=== PATIENT | female | born 1960 | race Caucasian/White ===

== ENCOUNTER → 2018-01-08 | Day surgery (SDC) | payer OTHER ==
[2018-01-01 10:59] VITALS: BMI 31.0
[~2018-01-08] VITALS: Ht 154.9 cm; Wt 74.5 kg
[~2018-01-08] MED LIST: EZET10TA63 PO; FENTANYL CITRATE INJ 50 MCG/1 ML 2 ML VIAL ONE; LIDOCAINE HCL 2% 2 ML VIAL (20MG/ML) ONE; PRLSR20 PO; PROPOFOL IV EMULSION 10 MG/ML 20 ML VIAL IV ONE; SODIUM CHLORIDE 0.9% 500ML 500 ML IV ONE
[2018-01-08 15:22] VITALS: Ht 154.9 cm; Wt 74.5 kg
--- NOTE | 2018-01-08 15:31 | Endo History and Physical ---
History & Physical Date of Service: Jan 08, 2018. Chief Complaint: GERD Referring Physician: FISH Lafleur History of Present Illness OK to resume all medications today as prescribed Reported Home Medications Medications Dose Route/Sig Max Daily Dose Days Date Category Prilosec (Omeprazole) 20 Mg Capcr 20 Mg PO QAM 01/01/18 Reported Zetia (Ezetimibe) 10 Mg Tab 10 Mg PO QAM 01/01/18 Reported Past Surgical History Hx Cardiac Surgery: No Hx Internal Defibrillator: No Hx Pacemaker: No Hx Abdominal Surgery: Yes (SPLEENECTOMY) Hx of Implantable Prosthesis: No Hx Post-Op Nausea and Vomiting: No Hx Cancer Surgery: No Hx Thoracic Surgery: No Hx Orthopedic: Yes (RT FOOT SURGERY (DEFORMITY REPAIR)) Hx Urinary Tract Surgery: No Family History IBD Social History Smoking Status: Never Smoker Hx Substance Use: No Hx Alcohol Use: Yes (RARELY) Allergies Coded Allergies: NO KNOWN DRUG ALLERGIES (Verified Allergy, Unknown, ., 01/08/18) Current Medications Reported Home Medications Medications Dose Route/Sig Max Daily Dose Days Date Category Prilosec (Omeprazole) 20 Mg Capcr 20 Mg PO QAM 01/01/18 Reported Zetia (Ezetimibe) 10 Mg Tab 10 Mg PO QAM 01/01/18 Reported Vital Signs Weight (Kilograms): 74.55 Height (Feet): 5 Height (Inches): 1 Physical Exam General Appearance: WD/WN, no apparent distress Respiratory/Chest: Auscultation: breath sounds normal Cardiovascular: Heart Auscultation: RRR Abdomen: Bowel Sounds: normal Inspection & Palpation: soft, non-distended, no tenderness, guarding & rebound Assessment and Plan Assessment: 57 yo CF who presents for EGD secondary to GERD. Plan: Proceed with EGD
--- NOTE | 2018-01-08 17:05 | Discharge Instructions ---
Endoscopy Patient Instructions Date / Procedure(s) Performed Jan 08, 2018. EGD Allergy Information Coded Allergies: NO KNOWN DRUG ALLERGIES (Verified Allergy, Unknown, ., 01/08/18) Discharge Date / Findings Jan 08, 2018. Biopsies of mid-esophagus Schatzki's ring s/p dilation Hiatal hernia Gastric antrum biopsies Medication Instructions 1) Increase Omeprazole to 20mg by mouth each morning 1/2 hour prior to breakfast and dinner. 2) OK to resume all other medications as prescribed Reported Home Medications Medications Dose Route/Sig Max Daily Dose Days Date Category Prilosec (Omeprazole) 20 Mg Capcr 20 Mg PO QAM 01/01/18 Reported Zetia (Ezetimibe) 10 Mg Tab 10 Mg PO QAM 01/01/18 Reported Provider Instructions Activity Restrictions - No exercising or heavy lifting for 24 hours. - Do not drink alcohol the day of the procedure. - Do not drive a car or operate machinery until the day after the procedure. - Do not make any important decisions or sign important papers in 24 hours after the procedure. Following Day: - Return to full activity which may include returning to work/school. Diet Start your diet with liquids and light foods (jello, soup, juice, toast). Then eat your usual diet if not nauseated. Treatment For Common After Affects For mild abdominal pain, bloating, or excessive gas: - Rest - Eat lightly - Lie on right side Follow-Up Information Follow-up with DR. CAMARA as scheduled Anesthesia Information What You Should Know You have had a procedure that required some medicine to reduce anxiety and discomfort. This treatment is called moderate sedation. After receiving the treatment, you may be sleepy, but you will be able to breathe on your own. The effects of the treatment may last for several hours. Follow these instructions along with Activity/Diet recommendations noted above: * Do NOT do anything where dizziness or clumsiness would be dangerous. * Rest quietly at home today, then you can be up and about tomorrow. * Have a responsible person stay with you the rest of today. * You may have had an I.V. today. If so, you may take the dressing off later today. Recommendations Call your doctor if: * Trouble breathing * Continuous vomiting for more than 24 hours * Temperature above 101 degrees * Severe abdominal pain or bloating * Pain not relieved by pain medicine ordered * There is increased drainage or redness from any incision * A large amount of rectal bleeding greater than 2-3 tablespoons. (If you had a polyp/s removed or have hemorrhoids, a small amount of blood - from the rectum is to be expected.) * You have any unanswered questions or concerns. IN THE EVENT OF A SERIOUS EMERGENCY, GO TO THE NEAREST EMERGENCY ROOM Your discharge instructions were prepared by provider Benjamín Meadows. Patient Instructions Signature Page Alexandra Fuentes Patient (or Guardian) Signature/Date: I have read and understand the instructions given to me by my caregivers. Caregiver/RN/Doctor Signature/Date: The above-named patient and/or guardian has received patient instructions on this date. + Original Patient Signature Page (only) stays with chart. Please make copy for patient.
--- NOTE | 2018-01-08 17:18 | Anesthesiology Progress Note ---
Anesthesia Post Op Note Date & Time Jan 08, 2018 at 16:53 Vital Signs Pain Intensity: 0 Vital Signs Past 12 Hours Date Time Temp Pulse Resp B/P (MAP) Pulse Ox O2 Delivery O2 Flow Rate FiO2 01/08/18 15:36 36.8 93 20 142/84 (103) 96 Room Air Notes Mental Status: alert / awake / arousable, participated in evaluation Pt Amnestic to Procedure: Yes Nausea / Vomiting: adequately controlled Pain: adequately controlled Airway Patency, RR, SpO2: stable & adequate BP & HR: stable & adequate Hydration State: stable & adequate Anesthetic Complications: no major complications apparent
[2018-01-08 17:26] VITALS: BP 129/82; PULSE 93; O2SAT 93
--- NOTE | 2018-01-09 11:34 | GI REPORT ---
Patient Name: Alexandra Fuentes Procedure Date: 01/08/2018 4:14 PM Date of : 1960 Admit Type: Outpatient Age: 57 Gender: Female Attending MD: Benjamín Meadows DO Procedure: Upper GI endoscopy Providers: Benjamín Meadows DO Referring MD: Fabiola Haynes Indications: Suspected gastro-esophageal reflux disease Medicines: Monitored Anesthesia Care Complications: No immediate complications. Estimated Blood Loss: Estimated blood loss: none. Procedure: Pre-Anesthesia Assessment: - Prior to the procedure, a History and Physical was performed, and patient medications and allergies were reviewed. The patient's tolerance of previous anesthesia was also reviewed. The risks and benefits of the procedure and the sedation options and risks were discussed with the patient. All questions were answered, and informed consent was obtained. Prior Anticoagulants: The patient has taken no previous anticoagulant or antiplatelet agents. ASA Grade Assessment: II - A patient with mild systemic disease. After reviewing the risks and benefits, the patient was deemed in satisfactory condition to undergo the procedure. After obtaining informed consent, the endoscope was passed under direct vision. Throughout the procedure, the patient's blood pressure, pulse, and oxygen saturations were monitored continuously. The scope was introduced through the mouth, and advanced to the second part of duodenum. The upper GI endoscopy was accomplished without difficulty. The patient tolerated the procedure well. Findings: Biopsies were taken with a cold forceps in the middle third of the esophagus for histology. A moderate Schatzki ring (acquired) was found at the gastroesophageal junction. A TTS dilator was passed through the scope. Dilation with a 15-16.5-18 mm balloon dilator was performed to 18 mm. The dilation site was examined and showed moderate improvement in luminal narrowing. A medium-sized hiatal hernia was present. Localized mild inflammation characterized by erythema was found in the gastric antrum. Biopsies were taken with a cold forceps for histology. The examined duodenum was normal. Impression: - Moderate Schatzki ring. Dilated. - Medium-sized hiatal hernia. - Gastritis. Biopsied. - Normal examined duodenum. - Biopsies were taken with a cold forceps for histology in the middle third of the esophagus. Recommendation: - Resume previous diet. - Use Prilosec (omeprazole) 20 mg PO BID. - Await pathology results. - Return to GI office in 6 weeks. Benjamín Meadows DO 01/08/2018 5:03:08 PM This report has been signed electronically. Note Initiated On: 01/08/2018 4:14 PM Number of Addenda: 0 I attest to the content of the Intraoperative Record and orders documented therein, exceptions below {[id number]}
== END | disposition home or self-care (01) ==
LOC: C.GI 14:18
PROVIDERS: ATTEND Internal Medicine
DX: K21.9 Gastro-esophageal reflux disease without esophagitis (principal); K22.2 Esophageal obstruction; K29.70 Gastritis, unspecified, without bleeding; K44.9 Diaphragmatic hernia without obstruction or gangrene; Z90.81 Acquired absence of spleen

== ENCOUNTER 2024-02-17 11:32 | Inpatient (IN) ==
--- NOTE | 2024-02-17 11:34 | ED Triage Note ---
Date of Service February 17, 2024 Provider in Triage Author: Carlyle Smith History of Present Illness This patient was briefly evaluated while in triage. An abbreviated physical exam was performed. This patient is a 63-year-old Female who presents to the ED for evaluation of: Nauseated, lightheaded, vision off, fever. Vomiting has resolved since recent ED visit on Saturday. Not eating and drinking much. No pain. Recent testing via peripheral smear returned with likely babesia infection. PCR pending. Physical Exam GENERAL: 63 year old female. In no acute distress. SKIN: No lesions or rashes. HEART: Regular rate and rhythm. LUNGS: Clear to auscultation. ABDOMEN: Bowel sounds normoactive. No guarding or rigidity. No tenderness of palpation. NEURO: Alert and oriented. No deficits. MUSCULOSKELETAL: No deformities to inspection of the extremities. PSYCH: Patient is pleasant and answers all questions appropriately. Initial orders for labs and / or imaging were placed and patient was placed in the waiting area until a bed is available. Please see further documentation for the full ED course.
[2024-02-17] MEDS: ONDANSETRON INJ 2 MG/ML 2 ML VIAL IV STA (11:57)
[2024-02-17] MEDS: SODIUM CHLORIDE 0.9% 1,000 ML IV SCH ×3 (12:00→15:34)
[2024-02-17 12:12] LABS: Hematocrit (blood only) 41.8 % (37.0-47.0); Hemoglobin 14.5 g/dl (12.0-16.0); Mean Corpuscular Hemoglobin 29.2 pg (25.0-34.0); Mean Corpuscular Hgb Conc 34.7 g/dL (32.0-36.0); Mean Corpuscular Volume 84.1 fL (80.0-100.0); Mean Platelet Volume 12.9 fL (9.4-12.4); Platelet Count 173 K/uL (130-400); RDW Coefficient of Variation 15.3 % (11.5-14.5); RDW Standard Deviation 46.4 fL (36.4-46.3); Red Blood Count 4.97 M/uL (4.20-5.40)
--- NOTE | 2024-02-17 12:31 | XRay Report ---
XR chest 1V portable CLINICAL HISTORY: Nausea, cough TECHNIQUE: Single frontal radiograph of the chest was obtained. Comparison: None available at the time of this dictation. FINDINGS: No lines and tubes are seen. The cardiomediastinal silhouette is normal. The lungs are clear. No evid ence of pleural effusion or pneumothorax. A hiatal hernia is seen. IMPRESSION: No acute abnormalities and in particular no radiographic evidence of pneumonia. ACT 112: Negative or not required by law. Electronically signed by: Onofre Leavitt M.D. 02/17/2024 12:30 PM
[2024-02-17 12:36] LABS: Albumin Globulin Ratio 0.9 (0.9-2); Albumin Level 3.1 gm/dl (3.4-5.0); BUN Creatinine Ratio 13.6 (10-20); Bilirubin,Total 1.1 mg/dl (0.2-1.0); Calcium 8.7 mg/dl (8.6-10.3); Est GFR (Non-African American) 57.8 ml/min; Globulin 3.5 gm/dl (2.5-4.0); Magnesium 2.1 mg/dl (1.7-2.4); Potassium 3.6 mmol/L (3.5-5.1); Total Protein 6.6 gm/dl (6.0-8.3)
--- NOTE | 2024-02-17 12:39 | Emergency Department Note ---
Impression & Plan Fever, Nausea & vomiting, Babesiosis ED Provider Note ED Provider Note NAME: CORTES CASTRO AGE:63 SEX: Female : 1960 ARRIVES VIA: private vehicle INFORMANT: Patient ED PROVIDER(s): Sherrill Romero DO CHIEF COMPLAINT: Fevers, nausea and vomiting, called back due to abnormal lab HPI: This is a 63-year-old female who presents emergency department after being called to discuss abnormal lab results for tickborne illness that were initially drawn and sent last week when she presented for evaluation of fevers, nausea and vomiting. Patient states she has had persistent symptoms of this. She denies abdominal pain, diarrhea, rash or sores. Patient states she did have a tick bite approximately 3 weeks ago on her right anterior chest wall. She states she was able to remove the tick and never sought any localized rash. She denies any recent joint pains or myalgias. She denies headaches. Tickborne labs drawn last week showed a positive Babesia. PAST MEDICAL HISTORY:See Below PAST SURGICAL HISTORY:See Below FAMILY HISTORY:See Below SOCIAL HISTORY:See Below HOME MEDICATIONS:See Below ALLERGIES:See Below VITALS:See Below PHYSICAL EXAMINATION: GENERAL: alert, well appearing, well nourished, no distress, non-toxic EYE EXAM: normal conjunctiva, PERRL and EOM's grossly intact OROPHARYNX: no exudate, no erythema, lips, buccal mucosa, and tongue normal and mucous membranes are dry NECK: supple, no nuchal rigidity, no adenopathy, non-tender LUNGS: Clear to auscultation. Normal chest wall mechanics, no w/r/r HEART: no murmurs, S1 normal and S2 normal ABDOMEN: abdomen soft, non-tender, normo-active bowel sounds, no masses, no rebound or guarding. BACK: Back is symmetrical on inspection and there is no deformity SKIN: no rashes, petechiae, orbruising UPPER EXTREMITIES: upper extremities are grossly normal. FROM, nml pulses b/l. LOWER EXTREMITIES: No pitting edema. FROM, nml pulses b/l. NEURO EXAM: Normal sensorium, cranial nerves II-XII grossly intact, normal speech, no facial droop,nogross weakness of arms, no gross weakness of legs. Gross sensation intact. No ataxia. Vital Signs: reviewed and remarkable Differential Diagnosis: Bacteremia, sepsis, ABEL, electrolyte abnormalities, dehydration, pneumonia, bowel obstruction, GI bleed, as well as others were considered MEDICAL DECISION MAKING: This is a 63-year-old female who presents emergency department after being called to return due to persistent nausea, vomiting, and fevers and recent positive labs drawn several days ago in the emergency department that revealed positive Babesia. No other recent travel to suggest occult malaria. Patient was afebrile and hemodynamically stable here. Labs drawn and sent, IV established, EKG and chest ray performed bedside interpreted by me and patient monitor on telemetry. She was started on IV fluids, given IV Zofran, and recent results reviewed with ED pharmacist due to concern for positive Babesia in the setting of an immunocompromised patient status postsplenectomy as a child. After review of CDC guidelines, based on her age and the splenectomy status, this would make patient a more severe case of babesiosis. Guidelines recommended IV antibiotics and admission and ID consult. Patient started on IV azithromycin and atovaquone. Case discussed with hospitalist team for additional evaluation and management. Patient updated on results and plan, she verbalized understanding and was in agreement. Consultation(s): 1309: Discussed with eulalia Hart hospitalist team, for additional evaluation. ER Treatment Provided: See below Diagnostics Interpreted By Me: -ECG: Normal sinus at 81, normal axis, normal intervals, nonspecific ST/T wave changes, low voltage -Cardiac Monitoring: An order was placed for continuous cardiac monitoring. The monitor shows a rate of 80 with normal sinus rhythm. -Laboratory studies: As stated above and show below. -Imaging studies: X-ray Chest: A single view study of the chest was reviewed and was negative for cardiomegaly, focal infiltrate, effusion, pulmonary edema, or wide mediastinum. Triage Nursing Note Reviewed Prior/Outside Records Reviewed Past Med/Surg History Problem List (Updated 02/17/24 @ 14:13 by STEPHANE Bentley) Babesiosis (Acute) H/O: depression H/O hyperlipidemia Medical History (Updated 02/17/24 @ 14:13 by STEPHANE Bentley) Arthritis Anxiety GERD (gastroesophageal reflux disease) Surgical History S/P splenectomy S/P foot surgery Family History Brother Alcohol abuse Drug abuse Colorectal cancer Sister Bone cancer Mother Hypertension Grandmother Breast cancer Father Myocardial infarction Denies family history of Ovarian cancer Prostate cancer Social History Smoking Status: Never smoker Second Hand Exposure: No; Do You Dip or Chew Tobacco: No; Hx Alcohol Use: No Hx Substance Use: No Preferred Language: Taiwanese Communication Ability: Effective [employer] Lender Required: No Beliefs That Will Affect Care: None marital status: Current Living Situation: Alone current occupational status: employed Other Information That Helps Us Care for You: No Feels Safe at Home: Yes Dental Care, Regularly: Yes Physical Activity Frequency: Does not Exercise Seatbelt Use: always Sunscreen Use: No Assistive Devices: None Allergies Allergies Allergy/AdvReac Type Severity Reaction Status Date / Time No Known Drug Allergies Allergy Unknown . Verified 02/17/24 13:17 Home Meds Home Medications Medication Instructions Recorded Confirmed simvastatin 40 mg tablet 40 mg PO HS 02/17/24 02/17/24 Previous Rx's Medication Instructions Recorded omeprazole 20 mg tablet,delayed 20 mg PO BID #30 tabs 07/08/19 release Results & Data (ED) Vital Signs Vital Signs - 24 hr 02/17/24 11:33 02/17/24 11:33 02/17/24 11:50 Temperature 36.5 C Temperature Source Temporal Artery Scan Pulse Rate 88 82 Pulse Rate [Apical] 78 Pulse Rhythm Regular Respiratory Rate 20 16 18 Respiratory Effort / Characteristics Non-Labored Respiratory Depth Normal Blood Pressure 112/66 Blood Pressure [Left Arm] 102/80 Blood Pressure Mean 81 Blood Pressure Mean [Left Arm] 87 Blood Pressure Position Sitting Pulse Oximetry 93 94 94 Oxygen Delivery Method Room Air Room Air Room Air Sepsis Recent Fever Within 48 Hours Yes Sepsis New/Unexplained Change in Mental Status No Sepsis Action Taken by Nursing No Action Required Laboratory Data 02/18/24 07:14 02/18/24 07:14 Lab Results 02/17/24 02/17/24 Range/Units 11:54 13:00 WBC 8.70 (4.8-10.8) K/ul RBC 4.97 (4.20-5.40) M/uL Hgb 14.5 (12.0-16.0) g/dl Hct 41.8 (37.0-47.0) % MCV 84.1 (80.0-100.0) fL MCH 29.2 (25.0-34.0) pg MCHC 34.7 (32.0-36.0) g/dL RDW Std Deviation 46.4 H (36.4-46.3) fL RDW Coeff of Saritha 15.3 H (11.5-14.5) % Plt Count 173 (130-400) K/uL MPV 12.9 H (9.4-12.4) fL Immature Gran % (Auto) 0.5 % Neut % (Auto) 47.0 % Lymph % (Auto) 33.8 % Titus % (Auto) 17.9 % Eos % (Auto) 0.2 % Baso % (Auto) 0.6 % Neut # (Auto) 4.09 (1.40-6.50) K/uL Lymph # (Auto) 2.94 (1.20-3.40) K/uL Titus # (Auto) 1.56 H (0.11-0.59) K/uL Eos # (Auto) 0.02 (0.00-0.50) K/uL Baso # (Auto) 0.05 (0.00-0.20) K/uL Immature Gran # (Auto) 0.04 (0.01-0.20) K/uL Peripher Smr Path Cons Cancelled Sodium 131 L (136-145) mmol/L Potassium 3.6 (3.5-5.1) mmol/L Chloride 99 (98-107) mmol/L Carbon Dioxide 25 (21-32) mmol/L Anion Gap 7 (3-11) BUN 14 (6-23) mg/dl Creatinine 1.03 (0.6-1.2) mg/dl Est Cr Clr Drug Dosing 50.0 ml/min Est GFR ( Amer) 67.0 ml/min Est GFR (Non-Af Amer) 57.8 ml/min BUN/Creatinine Ratio 13.6 (10-20) Glucose 102 H (70-99(Fasting)) mg/dl Lactate 1.2 (0.4-2.0) mmol/L Calcium 8.7 (8.6-10.3) mg/dl Magnesium 2.1 (1.7-2.4) mg/dl Total Bilirubin 1.1 H (0.2-1.0) mg/dl AST 28 (13-39) U/L ALT 30 (7-52) U/L Alkaline Phosphatase 72 (34-104) U/L Troponin I High Sens 3.9 (0-14) pg/ml Total Protein 6.6 (6.0-8.3) gm/dl Albumin 3.1 L (3.4-5.0) gm/dl Globulin 3.5 (2.5-4.0) gm/dl Albumin/Globulin Ratio 0.9 (0.9-2) Lipase 56 (11-82) U/L Procalcitonin 1.55 H (0-0.5) ng/ml Babesia Smear See Comment A Lyme Disease Screen Negative (Negative) Administered Medications Acetaminophen (Acetaminophen 325 Mg Tab) 650 mg PO Q4H PRN PRN Reason: pain/fever Stop: 03/18/24 14:20 Last Admin: 02/19/24 00:15 Dose: 650 mg Documented By: TKSiobhan Admin: 02/18/24 08:09 Dose: 650 mg Documented By: Admin: 02/17/24 20:23 Dose: 325 mg Documented By: ROMULO Atovaquone (Atovaquone 750 Mg/5 Ml Udc) 750 mg PO Q12H KIRK Stop: 03/18/24 20:59 Last Admin: 02/18/24 20:31 Dose: 750 mg Documented By: TKSiobhan Admin: 02/18/24 08:11 Dose: 750 mg Documented By: Admin: 02/17/24 20:23 Dose: 750 mg Documented By: CRH Enoxaparin Sodium (Enoxaparin Inj 40 Mg/0.4 Ml Syr) 40 mg SQ Q24H KIRK Stop: 03/18/24 14:29 Last Admin: 02/18/24 14:58 Dose: Not Given Documented By: Admin: 02/17/24 17:19 Dose: 40 mg Documented By: CMV Azithromycin 500 mg/ Dextrose 255 mls @ 125 mls/hr IV Q24H KIRK Stop: 02/25/24 13:29 Last Infusion: 02/18/24 15:28 Dose: Infused Documented By: Admin: 02/18/24 13:23 Dose: 125 mls/hr Documented By: CS Pantoprazole Sodium (Pantoprazole 40 Mg Tab) 40 mg PO BID KIRK Stop: 03/18/24 20:59 Last Admin: 02/18/24 20:31 Dose: 40 mg Documented By: TKSiobhan Admin: 02/18/24 08:11 Dose: 40 mg Documented By: Admin: 02/17/24 20:23 Dose: 40 mg Documented By: CRH Simvastatin (Simvastatin 40 Mg Tab) 40 mg PO HS KIRK Stop: 03/18/24 20:59 Last Admin: 02/18/24 20:31 Dose: 40 mg Documented By: Admin: 02/17/24 20:31 Dose: Not Given Documented By: CRH Discontinued Medications Atovaquone (Atovaquone 750 Mg/5 Ml Udc) 750 mg PO NOW STA Stop: 02/17/24 12:41 Last Admin: 02/17/24 13:19 Dose: 750 mg Documented By: SIMON Sodium Chloride (Nss) 1,000 mls @ 999 mls/hr IV .Q1H1M KIRK Stop: 02/17/24 12:45 Last Infusion: 02/17/24 13:23 Dose: Infused Documented By: Admin: 02/17/24 12:00 Dose: 999 mls/hr Documented By: PAOLA Azithromycin 500 mg/ Dextrose 255 mls @ 127.5 mls/hr IV NOW STA Stop: 02/17/24 14:39 Last Infusion: 02/17/24 15:30 Dose: Infused Documented By: Admin: 02/17/24 13:19 Dose: 127.5 mls/hr Documented By: SIMON Sodium Chloride (Nss) 1,000 mls @ 125 mls/hr IV .Q8H KIRK Stop: 03/18/24 12:59 Last Infusion: 02/17/24 15:12 Dose: Infused Documented By: Infusion: 02/17/24 14:23 Dose: 0 mls/hr Documented By: Admin: 02/17/24 13:19 Dose: 125 mls/hr Documented By: JKB Sodium Chloride (Nss) 1,000 mls @ 100 mls/hr IV .Q10H KIRK Stop: 02/18/24 00:20 Last Infusion: 02/18/24 02:07 Dose: Infused Documented By: Admin: 02/17/24 15:34 Dose: 100 mls/hr Documented By: CMV Sodium Chloride (Nss) 1,000 mls @ 80 mls/hr IV .[id number] ONE Stop: 02/19/24 00:29 Last Infusion: 02/19/24 01:20 Dose: Infused Documented By: Admin: 02/18/24 12:50 Dose: 80 mls/hr Documented By: ANGÉLICA Ondansetron HCl (Ondansetron Inj 2 Mg/Ml 2 Ml Vial) 4 mg IV NOW STA Stop: 02/17/24 11:39 Last Admin: 02/17/24 11:57 Dose: 4 mg Documented By: PAOLA Ondansetron HCl (Ondansetron 4 Mg Od Tab) 4 mg PO ONE ONE Stop: 02/18/24 15:05 Last Admin: 02/18/24 15:14 Dose: 4 mg Documented By: [facility] Imaging Data Radiologist's Impression: Chest X-Ray 02/17/24 11:37 XR chest 1V portable CLINICAL HISTORY: Nausea, cough TECHNIQUE: Single frontal radiograph of the chest was obtained. Comparison: None available at the time of this dictation. FINDINGS: No lines and tubes are seen. The cardiomediastinal silhouette is normal. The lungs are clear. No evidence of pleural effusion or pneumothorax. A hiatal hernia is seen. IMPRESSION: No acute abnormalities and in particular no radiographic evidence of pneumonia. ACT 112: Negative or not required by law. Electronically signed by: Onofre Leavitt M.D. 02/17/2024 12:30 PM Discharge Plan Visit Data Chief Complaint: Illness Stated Complaint: ABNORMAL TEST RESULTS ED Provider: Sherrill Romero Discharge Problem: Fever, Nausea & vomiting, Babesiosis Patient Disposition: Admitted As Inpatient Discharge Instructions Interventions: ED Discharge Assessment Last Done: 02/17/24 14:20
[2024-02-17 12:42] LABS: Troponin I High Sensitivity 3.9 pg/ml (0-14)
[2024-02-17 13:05] LABS: Basophils # (auto) 0.05 K/uL (0.00-0.20); Basophils % (auto) 0.6 %; Eosinophils # (auto) 0.02 K/uL (0.00-0.50); Eosinophils % (auto) 0.2 %; Immature Granulocytes # (auto) 0.04 K/uL (0.01-0.20); Immature Granulocytes % (auto) 0.5 %; Lymphocytes # (auto) 2.94 K/uL (1.20-3.40); Lymphocytes % (auto) 33.8 %; Monocytes # (auto) 1.56 K/uL (0.11-0.59); Monocytes % (auto) 17.9 %; Neutrophils # (auto) 4.09 K/uL (1.40-6.50)
[2024-02-17] MEDS: ATOVAQUONE 750 MG/5 ML UDC PO STA (13:19)
[2024-02-17] MEDS: AZITHROMYCIN 500 MG in DEXTROSE 5% 250 ML IV STA (13:19)
--- NOTE | 2024-02-17 14:18 | History & Physical Report ---
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 Patient presenting from home for evaluation of ongoing fever and call back from the ED after smear from 02/13 visit was positive for Babesia Patient reports tick bite ~ 3 weeks ago on her chest which she was able to remove the tick, denies any rash In the ED, afebrile, LFTs and platelets WNL Ordered parasite smear to for parasitemia percentage to help quantify severity of illness s/p IV azithromycin and atovaquone in the ED, will continue with both given hx of splenectomy ID consult Babesia PCR pending; will also check Lyme, Anaplasma, and Ehrilchia (2) S/P splenectomy: Plan: 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 Arminda Linares spent a total of 75 minutes coordinating, documenting, and providing care for this patient excluding time spent in the performance of separately billed services. This included personally reviewing all current laboratories and imaging studies, medication reconciliation, outpatient chart review, and discussion with specialists. Admission and Anticipated Discharge Date Admission Date: February 17, 2024 History of Present Illness Chief Complaint: Fever Primary Care Provider: Ayala Price MD 63-year-old female with PMH HLD, GERD, history of splenectomy at age 2 secondary to trauma, and other problem listed below who presents to the ED for evaluation of fever. Patient reports she had a tick bite on her chest about 3 weeks ago. States she was able to remove the entire tick. Denies any following rash. About 1 week ago, patient reports she started to develop fevers. She also had 3 days of nausea and vomiting. Patient was seen in the ED on 02/13 and was subsequently discharged home. She was called back today after her Babesia test returned positive. Given history of splenectomy and patient continues to run a fever, she was referred back to the ED for further evaluation. Patient reports running a fever this morning of 102 with chills. She has been taking 2 motrin/day without much relief of her symptoms. She reports the nausea and vomiting resolved. No chest pain or shortness of breath. Denies lightheadedness, dizziness, diaphoresis, and syncopal events. Denies urinary symptoms. In the ED, patient is afebrile, labs essentially unremarkable. Patient was given azithromycin, atovaquone, and IVF. Allergies Allergy/AdvReac Type Severity Reaction Status Date / Time No Known Drug Allergies Allergy Unknown . Verified 02/17/24 13:17 Home Medications Medication Instructions Recorded Confirmed Type omeprazole 20 mg tablet,delayed 20 mg PO BID #30 tabs 07/08/19 02/17/24 Rx release simvastatin 40 mg tablet 40 mg PO HS 02/17/24 02/17/24 History Past Med/Surg History Problem List (Updated 02/17/24 @ 14:13 by STEPHANE Bentley) Babesiosis (Acute) H/O: depression H/O hyperlipidemia Medical History (Updated 02/17/24 @ 14:13 by STEPHANE Bentley) Arthritis Anxiety GERD (gastroesophageal reflux disease) Surgical History S/P splenectomy S/P foot surgery Family History Brother Alcohol abuse Drug abuse Colorectal cancer Sister Bone cancer Mother Hypertension Grandmother Breast cancer Father Myocardial infarction Denies family history of Ovarian cancer Prostate cancer Social History Smoking Status: Never smoker Second Hand Exposure: No; Do You Dip or Chew Tobacco: No; Hx Alcohol Use: No Hx Substance Use: No Preferred Language: Polish [employer] Required: No Beliefs That Will Affect Care: None marital status: Current Living Situation: Alone current occupational status: employed Other Information That Helps Us Care for You: No Feels Safe at Home: Yes Dental Care, Regularly: Yes Physical Activity Frequency: Does not Exercise Seatbelt Use: always Sunscreen Use: No Assistive Devices: None Physical Exam Constitutional: WD/WN, vitals as above no acute distress Eyes: PERRL, conjunctivae normal, anicteric sclerae ENMT: external ear and nose normal, oropharynx normal Respiratory: normal respiratory effort, lungs clear to auscultation Cardiovascular: Rate/Rhythm: regular rate and regular rhythm Vessels: normal peripheral pulses Extremities: no edema Gastrointestinal (Abdomen): normal bowel sounds, soft, nontender, no hepatosplenomegaly Musculoskeletal: no cyanosis or clubbing, extremities motor strength 5/5 Skin: no rashes, warm and dry Neurologic: PERRL, EOMI, accommodation nl, no face palsy, no dysarthria Psychiatric: A+Ox3, euthymic affect Results & Data Results & Data Vital Signs (Past 12 Hours) Vital Signs Temp Pulse Pulse Resp BP BP Pulse Ox 02/17/24 13:26 80 16 105/77 97 02/17/24 13:00 84 16 99/75 L 97 02/17/24 11:50 82 18 94 02/17/24 11:33 78 16 102/80 94 02/17/24 11:33 36.5 C 88 20 112/66 93 O2 Del Method 02/17/24 13:26 Room Air 02/17/24 13:00 Room Air 02/17/24 11:50 Room Air 02/17/24 11:33 Room Air 02/17/24 11:33 Room Air Laboratory Results Short CBC 02/17/24 Range/Units 11:54 WBC 8.70 (4.8-10.8) K/ul Hgb 14.5 (12.0-16.0) g/dl Hct 41.8 (37.0-47.0) % Plt Count 173 (130-400) K/uL BMP 02/17/24 11:54 Sodium 131 L Potassium 3.6 Chloride 99 Carbon Dioxide 25 BUN 14 Creatinine 1.03 Glucose 102 H Calcium 8.7 Liver Function 02/17/24 Range/Units 11:54 Total Bilirubin 1.1 H (0.2-1.0) mg/dl AST 28 (13-39) U/L ALT 30 (7-52) U/L Alkaline Phosphatase 72 (34-104) U/L Albumin 3.1 L (3.4-5.0) gm/dl Urine 02/17/24 Range/Units 14:00 Urine Color Yellow Urine Appearance Clear (Clear) Urine pH 6.5 (4.5-7.5) Ur Specific [place] 1.003 (1.000-1.030) Urine Protein Negative (Negative) Urine Glucose (UA) Negative (Negative) Diagnostic Findings Chest X-Ray 02/17/24 11:37 XR chest 1V portable CLINICAL HISTORY: Nausea, cough TECHNIQUE: Single frontal radiograph of the chest was obtained. Comparison: None available at the time of this dictation. FINDINGS: No lines and tubes are seen. The cardiomediastinal silhouette is normal. The lungs are clear. No evidence of pleural effusion or pneumothorax. A hiatal hernia is seen. IMPRESSION: No acute abnormalities and in particular no radiographic evidence of pneumonia. ACT 112: Negative or not required by law. Electronically signed by: Onofre Leavitt M.D. 02/17/2024 12:30 PM Code Status & VTE Plan VTE Prophylaxis Plan VTE Prophylaxis will be ordered: Yes Supervising Physician Co-Signing Physician Notes Attending Addendum: care coordinated with STEPHANE Beth's notes please refer to her notes for full details, I agree with her notes patient seen and examined, records reviewed by myself as well on exam, patient , Seen sitting up, comfortable, not in distress States she is already starting to feel better no other symptoms VS noted and reviewed oriented x 3, not in distress, speaks in sentences with no effort nor accessory muscle use normal rate, regular rhythm, no murmurs clear breath sounds bilaterally non distended, soft, nontender no bipedal edema, erythema, warmth no neuro deficits all noted and reviewed including below ASSESSMENT AND PLAN> Babesiosis History of tick bite 3 weeks ago Babesia parasite smear with parasitemia percentage pending -May be needed by ID service to classify severity of illness and guide with medical therapy Lyme screen negative Anaplasmosis pending Will treat as severe babesiosis for now, IV azithromycin plus atovaquone ID consulted other diagnoses and plan of care as per STEPHANE Beth's notes En Hilliard MD
[2024-02-17 14:27] LABS: Appearance Urine Clear (Clear); Bacteria Urine Automated None Seen (None Seen); Bilirubin Urine Negative (Negative); Blood Urine Trace (Negative); Cast Urine Automated 0-2 /lpf (0-2); Color Urine Yellow; Epithelial Cell Urine Auto 0-2 /hpf (0-2); Glucose Urine UA Negative (Negative); Ketones Urine Negative (Negative); Leukocyte Esterase Urine Negative (Negative); Nitrite Urine Negative (Negative); Protein Urine Negative (Negative); RBC Urine Automated 0-2 /hpf (0-2); Specific Gravity Urine 1.003 (1.000-1.030); Urobilinogen Urine Negative (Negative); WBC Urine Automated 0-5 /hpf (0-5); pH Urine 6.5 (4.5-7.5)
[2024-02-17] MEDS: ENOXAPARIN INJ 40 MG/0.4 ML SYR SQ SCH (17:19)
[2024-02-17] MEDS: ACETAMINOPHEN 325 MG TAB PO PRN (20:23)
[2024-02-17] MEDS: SIMVASTATIN 40 MG TAB PO SCH (20:23)
[2024-02-17] MEDS: PANTOprazole 40 MG TAB PO SCH (20:23)
[2024-02-17] MEDS: ATOVAQUONE 750 MG/5 ML UDC PO SCH (20:23)
[2024-02-18 08:01] LABS: Hematocrit (blood only) 35.5 % (37.0-47.0); Hemoglobin 12.3 g/dl (12.0-16.0); Mean Corpuscular Hemoglobin 29.2 pg (25.0-34.0); Mean Corpuscular Hgb Conc 34.6 g/dL (32.0-36.0); Mean Corpuscular Volume 84.3 fL (80.0-100.0); Mean Platelet Volume 13.2 fL (9.4-12.4); Platelet Count 174 K/uL (130-400); RDW Coefficient of Variation 15.6 % (11.5-14.5); RDW Standard Deviation 47.8 fL (36.4-46.3); Red Blood Count 4.21 M/uL (4.20-5.40); White Blood Count 9.41 K/ul (4.8-10.8)
[2024-02-18 08:14] LABS: Albumin Globulin Ratio 0.8 (0.9-2); Albumin Level 2.5 gm/dl (3.4-5.0); BUN Creatinine Ratio 11.1 (10-20); Bilirubin,Total 0.8 mg/dl (0.2-1.0); Calcium 7.6 mg/dl (8.6-10.3); Creatinine Clr Calc Pharmacy 57.2 ml/min; Est GFR (African American) 78.9 ml/min; Globulin 3.1 gm/dl (2.5-4.0); Potassium 3.5 mmol/L (3.5-5.1); Total Protein 5.6 gm/dl (6.0-8.3)
[2024-02-18 08:53] LABS: Basophils # (auto) 0.05 K/uL (0.00-0.20); Basophils % (auto) 0.5 %; Eosinophils # (auto) 0.03 K/uL (0.00-0.50); Eosinophils % (auto) 0.3 %; Immature Granulocytes # (auto) 0.08 K/uL (0.01-0.20); Immature Granulocytes % (auto) 0.9 %; Lymphocytes # (auto) 3.29 K/uL (1.20-3.40); Monocytes # (auto) 1.37 K/uL (0.11-0.59); Monocytes % (auto) 14.6 %; Neutrophils # (auto) 4.59 K/uL (1.40-6.50); Neutrophils % (auto) 48.7 %; Target Cells 1+
[2024-02-18] MEDS ORDERED: PROMETHAZINE HCL 6.25 MG in SODIUM CHLORIDE 0.9% 50 ML IV PRN (11:50)
[2024-02-18] MEDS: SODIUM CHLORIDE 0.9% 1,000 ML IV ONE (12:50)
[2024-02-18] MEDS: AZITHROMYCIN 500 MG in DEXTROSE 5% 250 ML IV SCH (13:23)
--- NOTE | 2024-02-18 14:14 | Hospitalist Progress Note ---
Date of Service February 18, 2024 Assessment & Plan (1) Babesiosis: Plan: Patient presenting from home for evaluation of ongoing fever and call back from the ED after smear from 02/13 visit was positive for Babesia. Patient reports tick bite ~ 3 weeks ago on her chest which she was able to remove the tick, denies any rash. Babesiosis H/O Tick Bite H/O splenectomy Serological test positive for Babesia. 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 (3) GERD (gastroesophageal reflux disease): Plan: Continue PPI (4) H/O hyperlipidemia: Plan: Continue statin DVT Px SQ Lovenox CODE STATUS Full code Admission and Anticipated Discharge Date Admission Date: February 17, 2024 Subjective Patient is seen and examined at bedside Reports intermittent nausea Dizziness much improved Reports having poor sleep overnight Denies any chest pain, dyspnea, abdominal pain No other complaints Review of Systems Review of Systems: All systems reviewed & are unremarkable except as noted in Subjective Physical Exam Physical Exam: Physical Exam: Vitals signs as noted above General Appearance:Moderately built and nourished, no apparent distress Head: normocephalic, Atraumatic Eyes: normal inspection, EOMI Neck: supple, Trachea midline Respiratory/Chest: Normal breath sounds, CTA, No accessory muscle use Cardiovascular: S1, S2, No murmur Abdomen/GI:Soft, Non tender, Bowel sounds present Extremities/Musculoskeletal:normal inspection, no edema Neurologic/Psych:AAOX3, grossly no focal neurological deficits Skin: normal color, warm Results & Data Results & Data Vital Signs (Past 12 Hours) Vital Signs Temp Pulse Resp BP Pulse Ox O2 Del Method 02/18/24 09:18 36.8 C 02/18/24 08:09 37.5 C 88 97 Room Air 02/18/24 07:57 37.8 C H 95 H 18 101/68 91 Room Air Laboratory Results Short CBC 02/18/24 Range/Units 07:14 WBC 9.41 (4.8-10.8) K/ul Hgb 12.3 (12.0-16.0) g/dl Hct 35.5 L (37.0-47.0) % Plt Count 174 (130-400) K/uL BMP 02/18/24 07:14 Sodium 131 L Potassium 3.5 Chloride 101 Carbon Dioxide 25 BUN 10 Creatinine 0.90 Glucose 87 Calcium 7.6 L Liver Function 02/18/24 Range/Units 07:14 Total Bilirubin 0.8 (0.2-1.0) mg/dl AST 23 (13-39) U/L ALT 22 (7-52) U/L Alkaline Phosphatase 54 (34-104) U/L Albumin 2.5 L (3.4-5.0) gm/dl Urine 02/17/24 Range/Units 14:00 Urine Color Yellow Urine Appearance Clear (Clear) Urine pH 6.5 (4.5-7.5) Ur Specific [place] 1.003 (1.000-1.030) Urine Protein Negative (Negative) Urine Glucose (UA) Negative (Negative)
[2024-02-18] MEDS: ONDANSETRON 4 MG OD TAB PO ONE (15:14)
--- NOTE | 2024-02-18 15:23 | Communication Note ---
Date of Service: February 18, 2024 The internet went down at the hospital today and thus, I couldn't see Ms. Fuentes. However, I had the chance to review the chart and come up with a plan. She is to be seen officially by our team tomorrow. Ms. River is a 63-year-old woman with medical history of hyperlipidemia, GERD, and splenectomy at age of 2 years (because of trauma) who was admitted to [facility] because of concern for babesiosis. She initially presented to the emergency department on 02/13 because of fever and history of tick bite on her chest about 3 weeks prior to presentation. She was able to remove the entire tick but not sure for how long it has been on her body. Around 1 week prior to presentation, she started spiking fevers up to 103 F that was associated with nausea, vomiting, diarrhea and mild headache which prompted her to come to the emergency department. At that time, a peripheral smear was obtained and she was sent home in a stable condition on supportive treatment. After the peripheral smear for parasitemia came back positive for intracellular ring forms, she was called back to come and admitted for further management. Labs: 02/13: Babesia smear was positive for intracellular rings 02/13: Respiratory viral panel negative 02/16: Lyme screen negative 02/16: Anaplasma and Ehrlichia PCR pending 02/16: Babesia smear was positive was less than 0.1% parasitemia Impression: 1) babesiosis 2) Hx of splenectomy Recommendations: - She only has history of splenectomy but no history of being on immuno modulators/biologics. She did have elevated bilirubin of 1.5 on 02/13 but no other workup for hemolytic anemia was performed. According to the % of parasitemia (<.1%) as well as the clinical and biomarkers criteria, I would classify her as mild to moderate disease and treat for a total of 10 days with oral atovaquone 750 mg twice daily and oral azithromycin 500 mg once daily.
--- NOTE | 2024-02-19 06:05 | Electrocardiogram Report ---
Test Reason : Blood Pressure : / mmHG Vent. Rate : 081 BPM Atrial Rate : 081 BPM P-R Int : 130 ms QRS Dur : 086 ms QT Int : 394 ms P-R-T Axes : 058 002 032 degrees QTc Int : 457 ms Normal sinus rhythm Incomplete right bundle branch block Nonspecific T wave abnormality When compared with ECG of 14-FEB-2024 15:34, Nonspecific T wave abnormality has replaced inverted T waves in Inferior leads T wave inversion no longer evident in Anterior leads Confirmed by Jian Kolb ([id number]) on 02/19/2024 6:05:08 AM Referred By: En Hilliard Confirmed By:Jian Kolb
--- NOTE | 2024-02-19 08:27 | Hospitalist Progress Note ---
Date of Service February 19, 2024 Assessment & Plan (1) Babesiosis: Plan: Patient presenting from home for evaluation of ongoing fever and call back from the ED after smear from 02/13 visit was positive for Babesia. Patient reports tick bite ~ 3 weeks ago on her chest which she was able to remove the tick, denies any rash. Babesiosis H/O Tick Bite H/O splenectomy Serological test positive for Babesia. 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 (3) GERD (gastroesophageal reflux disease): Plan: Continue PPI (4) H/O hyperlipidemia: Plan: Continue statin DVT Px SQ Lovenox CODE STATUS Full code Admission and Anticipated Discharge Date Admission Date: February 17, 2024 Subjective Patient seen in follow up of babesiosis Feels tired but otherwise well BP still on lower side Says she has been ambulating without dizziness Denies any chest pain, dyspnea, abdominal pain Review of Systems Review of Systems: All systems reviewed & are unremarkable except as noted in Subjective Physical Exam Physical Exam: General Appearance:Moderately built and nourished, no apparent distress Head: NC/AT Eyes: normal inspection, EOMI Neck: supple Respiratory/Chest: Normal breath sounds, CTA, No accessory muscle use Cardiovascular: S1, S2, No murmur Abdomen/GI: Soft, Non tender, Bowel sounds present Extremities/Musculoskeletal:normal inspection, no edema Neurologic/Psych:AAOX3, grossly no focal neurological deficits Skin: normal color, warm Results & Data Results & Data Vital Signs (Past 12 Hours) Vital Signs Temp Pulse Resp BP BP Pulse Ox O2 Del Method 02/19/24 08:10 96/63 L 02/19/24 07:58 37.1 C 88 21 85/53 L 94 Room Air Laboratory Results 02/19/24 02/19/24 02/19/24 Range/Units 07:56 07:56 07:56 WBC 9.18 (4.8-10.8) K/ul RBC 4.38 (4.20-5.40) M/uL Hgb 12.8 (12.0-16.0) g/dl Hct 36.5 L (37.0-47.0) % MCV 83.3 (80.0-100.0) fL MCH 29.2 (25.0-34.0) pg MCHC 35.1 (32.0-36.0) g/dL RDW Std Deviation 47.8 H (36.4-46.3) fL RDW Coeff of Saritha 15.9 H (11.5-14.5) % Plt Count 164 (130-400) K/uL MPV 12.9 H (9.4-12.4) fL Sodium 134 L (136-145) mmol/L Potassium 3.6 TNP Chloride 104 (98-107) mmol/L Carbon Dioxide 25 (21-32) mmol/L Anion Gap 5 (3-11) BUN 9 (6-23) mg/dl Creatinine 0.91 (0.6-1.2) mg/dl Est Cr Clr Drug Dosing 56.6 ml/min Est GFR ( Amer) 77.8 ml/min Est GFR (Non-Af Amer) 67.1 ml/min BUN/Creatinine Ratio 9.9 L (10-20) Glucose 97 (70-99(Fasting)) mg/dl Calcium 8.0 L (8.6-10.3) mg/dl Total Bilirubin 0.8 (0.2-1.0) mg/dl AST 30 TNP ALT 24 (7-52) U/L Alkaline Phosphatase 53 (34-104) U/L Total Protein 6.0 (6.0-8.3) gm/dl Albumin 2.7 L (3.4-5.0) gm/dl Globulin 3.3 (2.5-4.0) gm/dl Albumin/Globulin Ratio 0.8 L (0.9-2) Procalcitonin 1.07 H (0-0.5) ng/ml Medications Administered Current Inpatient Medications Acetaminophen (Acetaminophen 325 Mg Tab) 650 mg PO Q4H PRN PRN Reason: pain/fever Stop: 03/18/24 14:20 Last Admin: 02/19/24 00:15 Dose: 650 mg Atovaquone (Atovaquone 750 Mg/5 Ml Udc) 750 mg PO Q12H KIRK Stop: 03/18/24 20:59 Last Admin: 02/19/24 08:13 Dose: 750 mg Enoxaparin Sodium (Enoxaparin Inj 40 Mg/0.4 Ml Syr) 40 mg SQ Q24H KIRK Stop: 03/18/24 14:29 Last Admin: 02/18/24 14:58 Dose: Not Given Azithromycin 500 mg/ Dextrose 255 mls @ 125 mls/hr IV Q24H KIRK Stop: 02/25/24 13:29 Last Infusion: 02/18/24 15:28 Dose: Infused Promethazine HCl 6.25 mg/ (Sodium Chloride) 50.25 mls @ 201 mls/hr IV Q6H PRN PRN Reason: Nausea And Vomiting Stop: 03/19/24 11:49 Sodium Chloride (Nss) 1,000 mls @ 125 mls/hr IV .Q8H KIRK Stop: 03/20/24 08:29 Pantoprazole Sodium (Pantoprazole 40 Mg Tab) 40 mg PO BID KIRK Stop: 03/18/24 20:59 Last Admin: 02/19/24 08:13 Dose: 40 mg Simvastatin (Simvastatin 40 Mg Tab) 40 mg PO HS KIRK Stop: 03/18/24 20:59 Last Admin: 02/18/24 20:31 Dose: 40 mg
[2024-02-19 08:41] LABS: Alanine Aminotransferase 24 U/L (7-52); Albumin Globulin Ratio 0.8 (0.9-2); Albumin Level 2.7 gm/dl (3.4-5.0); Alkaline Phosphatase 53 U/L (34-104); Anion Gap 5 (3-11); BUN Creatinine Ratio 9.9 (10-20); Bilirubin,Total 0.8 mg/dl (0.2-1.0); Blood Urea Nitrogen 9 mg/dl (6-23); Carbon Dioxide 25 mmol/L (21-32); Chloride 104 mmol/L (98-107); Creatinine Clr Calc Pharmacy 56.6 ml/min; Est GFR (African American) 77.8 ml/min; Est GFR (Non-African American) 67.1 ml/min; Globulin 3.3 gm/dl (2.5-4.0); Glucose 97 mg/dl (70-99(Fasting)); Sodium 134 mmol/L (136-145)
[2024-02-19 08:52] LABS: Hematocrit (blood only) 36.5 % (37.0-47.0); Hemoglobin 12.8 g/dl (12.0-16.0); Mean Corpuscular Hemoglobin 29.2 pg (25.0-34.0); Mean Corpuscular Hgb Conc 35.1 g/dL (32.0-36.0); Mean Corpuscular Volume 83.3 fL (80.0-100.0); Mean Platelet Volume 12.9 fL (9.4-12.4); Platelet Count 164 K/uL (130-400); RDW Coefficient of Variation 15.9 % (11.5-14.5); RDW Standard Deviation 47.8 fL (36.4-46.3); Red Blood Count 4.38 M/uL (4.20-5.40); White Blood Count 9.18 K/ul (4.8-10.8)
[2024-02-19] MEDS: SODIUM CHLORIDE 0.9% 1,000 ML IV SCH (09:10)
[2024-02-19 09:15] LABS: Potassium 3.6 mmol/L (3.5-5.1)
--- NOTE | 2024-02-19 13:27 | Infectious Disease Consult ---
"Date of Service February 19, 2024 Telehealth Information I performed this visit using a real-time telehealth connection between my location and the patients location ([facility]). After connecting through interactive tele-video, patient was identified by name and date of and/or wristband check.Patient (or authorized healthcare consumer sales representative) was informed that this was a telemedicine visit and it was being conducted confidentially over secure lines. My office door was closed and no one else was present in the room with me.Patient (or authorized healthcare consumer sales representative) provided consent to proceed with the visit, expressed an understanding of privacy and security of the telemedicine visit, and gave permission to have a hospital consumer sales representative in the room in order to assist with the visit and to conduct portions of the visit, as needed. I informed the patient (or authorized healthcare consumer sales representative) that I reviewed their record and presented the opportunity for them to ask any questions regarding the visit today. The patient agreed to participate. History of Present Illness History of Present Illness 63-year-old female with PMH HLD, GERD, history of splenectomy at age 2 secondary to trauma, who presented to the ED for evaluation of fever. Patient reports she had a tick bite on her chest about 3 weeks ago. States she was able to remove the entire tick. Denies any following rash. About 1 week ago, patient reports she started to develop fevers. She also had 3 days of nausea and vomiting. Patient was seen in the ED on 02/13 and was subsequently discharged home. She was called back today after her Babesia test returned positive. Given history of splenectomy and patient continues to run a fever, she was referred back to the ED for further evaluation. Patient reports running a fever this morning of 102 with chills. She has been taking 2 motrin/day without much relief of her symptoms. She reports the nausea and vomiting resolved. No chest pain or shortness of breath. Denies lightheadedness, dizziness, diaphoresis, and syncopal events. Denies urinary symptoms. In the ED, patient is afebrile, labs essentially unremarkable. Patient was given azithromycin, atovaquone, and IVF. Allergies Allergy/AdvReac Type Severity Reaction Status Date / Time No Known Drug Allergies Allergy Unknown . Verified 02/17/24 13:17 Home Medications Medication Instructions Recorded Confirmed Type omeprazole 20 mg tablet,delayed 20 mg PO BID #30 tabs 07/08/19 02/17/24 Rx release simvastatin 40 mg tablet 40 mg PO HS 02/17/24 02/17/24 History Patient History Medical History (Updated 02/17/24 @ 14:13 by STEPHANE Bentley) Arthritis Anxiety GERD (gastroesophageal reflux disease) Surgical History S/P splenectomy S/P foot surgery Family History Brother Alcohol abuse Drug abuse Colorectal cancer Sister Bone cancer Mother Hypertension Grandmother Breast cancer Father Myocardial infarction Denies family history of Ovarian cancer Prostate cancer Social History Smoking Status: Never smoker Second Hand Exposure: No; Do You Dip or Chew Tobacco: No; Hx Alcohol Use: No Hx Substance Use: No Preferred Language: Mongolian Communication Ability: Effective Cloth Feeder Required: No Beliefs That Will Affect Care: None marital status: Current Living Situation: Alone current occupational status: employed Other Information That Helps Us Care for You: No Feels Safe at Home: Yes Dental Care, Regularly: Yes Physical Activity Frequency: Does not Exercise Seatbelt Use: always Sunscreen Use: No Assistive Devices: None Results & Data Vital Signs (Past 12 Hours) Vital Signs Temp Pulse Resp BP BP Pulse Ox O2 Del Method 02/19/24 08:10 96/63 L 02/19/24 07:58 37.1 C 88 21 85/53 L 94 Room Air Laboratory Results Pathology consult, moderately complexity: | The peripheral blood shows a mild polycythemia with | increased anisopoikilocytosis. Frequent ring forms are seen | inside scattered red cells. There is no significant increase | in schistocytes or spherocytes. There is no evidence of | rouleaux, RBC agglutination, basophilic stippling, or | circulating nucleated red blood cells. The WBC is normal | though there is an absolute monocytosis and lymphopenia. The | granulocytes are appropriately segmented without dysplastic | features. No circulating immature myeloid precursors or | blasts are identified. The monocytes are morphologically | mature. The lymphocytes are small to moderate in size and | mature, without atypical features. The platelets are | quantitatively normal. No dysplastic or giant forms are | identified. | | The peripheral smear is remarkable for a mild polycythemia | and frequent intracellular ring form parasites. In the | absence of a history of travel, this most likely represents | babesia infection. However, the distinction between babesia | and malaria cannot be reliably made in this lab and further | testing is recommended to confirm this diagnosis. Clinical | correlation required."
[2024-02-19] MEDS: ALBUMIN 25% 25 GM/100 ML VIAL IV ONE (14:02)
[2024-02-19] MEDS: ONDANSETRON 2 MG OD TAB PO PRN (20:08)
[2024-02-19] MEDS: POTASSIUM CHLORIDE PWD 20 MEQ PACK PO STA (22:44)
[2024-02-19] MEDS: NSS + 20MEQ KCL 20 MEQ/1,000 ML BAG IV ONE (22:44)
[2024-02-20 07:13] LABS: Hematocrit (blood only) 33.7 % (37.0-47.0); Mean Corpuscular Hemoglobin 29.4 pg (25.0-34.0); Mean Corpuscular Hgb Conc 35.6 g/dL (32.0-36.0); Mean Corpuscular Volume 82.6 fL (80.0-100.0); Mean Platelet Volume 12.6 fL (9.4-12.4); Platelet Count 231 K/uL (130-400); RDW Coefficient of Variation 16.1 % (11.5-14.5); Red Blood Count 4.08 M/uL (4.20-5.40); White Blood Count 10.07 K/ul (4.8-10.8)
[2024-02-20 07:15] LABS: Albumin Globulin Ratio 0.9 (0.9-2); Albumin Level 2.8 gm/dl (3.4-5.0); BUN Creatinine Ratio 9.4 (10-20); Bilirubin,Total 0.9 mg/dl (0.2-1.0); Calcium 8.2 mg/dl (8.6-10.3); Creatinine Clr Calc Pharmacy 60.6 ml/min; Est GFR (African American) 84.5 ml/min; Est GFR (Non-African American) 72.9 ml/min; Globulin 3.1 gm/dl (2.5-4.0); Phosphorus 2.2 mg/dl (2.5-4.9); Potassium 4.6 mmol/L (3.5-5.1); Total Protein 5.9 gm/dl (6.0-8.3)
[2024-02-20] MEDS: AZITHROMYCIN 250 MG TAB PO SCH (07:54)
--- NOTE | 2024-02-20 13:26 | Infectious Disease Consult ---
"Date of Service February 20, 2024 Telehealth Information I performed this visit using a real-time telehealth connection between my location and the patients location ([facility]). After connecting through interactive tele-video, patient was identified by name and date of and/or wristband check.Patient (or authorized healthcare fraud representative) was informed that this was a telemedicine visit and it was being conducted confidentially over secure lines. My office door was closed and no one else was present in the room with me.Patient (or authorized healthcare fraud representative) provided consent to proceed with the visit, expressed an understanding of privacy and security of the telemedicine visit, and gave permission to have a hospital fraud representative in the room in order to assist with the visit and to conduct portions of the visit, as needed. I informed the patient (or authorized healthcare fraud representative) that I reviewed their record and presented the opportunity for them to ask any questions regarding the visit today. The patient agreed to participate. Assessment & Plan (1) Babesiosis: Plan: Continue azithromycin and atovaquone for 7-10 or until resolution of symptoms Plan Patient admitted with fever after a tick bite and was foud to have intracellular ring forms concerning for Babesia .Patient was started on IV azithromycin and atovaquone Patient is s/p splenectomy and so would consider immunocompromised . Once symptoms have abated and parasitemia has diminished, azithromycin can be given orally (500 mg/day), and oral atovaquone (750 mg twice daily) should be continued. For patients at low risk of relapse(asplenia), the duration of therapy is at least 7 to 10 days; in some circumstances, a longer duration of therapy may be needed. The total duration of therapy depends on individual clinical circumstances and should be tailored to resolution of symptoms and laboratory parameters (complete blood count and parasitemia <4 percent). If low- grade parasitemia persists following completion of therapy, patients should be monitored with blood smear twice weekly untilBabesiaparasites are no longer observed.Thank you for allowing us to participate in the care of this patient ID will sign off History of Present Illness History of Present Illness Ms. 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 She initially presented to the emergency department on 02/13 because of fever and history of tick bite on her chest about 3 weeks prior to presentation. She was able to remove the entire tick but not sure for how long it has been on her body. Around 1 week prior to presentation, she started spiking fevers up to 103 F that was associated with nausea, vomiting, diarrhea and mild headache which prompted her to come to the emergency department. At that time, a peripheral smear was obtained and she was sent home in a stable condition on supportive treatment. After the peripheral smear for parasitemia came back positive for intracellular ring forms, she was called back to come and admitted for further management.Patient was started on azithromycin and atovaquone Allergies Allergy/AdvReac Type Severity Reaction Status Date / Time No Known Drug Allergies Allergy Unknown . Verified 02/17/24 13:17 Home Medications Medication Instructions Recorded Confirmed Type omeprazole 20 mg tablet,delayed 20 mg PO BID #30 tabs 07/08/19 02/17/24 Rx release simvastatin 40 mg tablet 40 mg PO HS 02/17/24 02/17/24 History atovaquone 750 mg/5 mL oral 750 mg (5 mL) PO Q12H 5 days #50 mL 02/19/24 Rx suspension (Mepron) Patient History Medical History (Updated 02/17/24 @ 14:13 by STEPHANE Bentley) Arthritis Anxiety GERD (gastroesophageal reflux disease) Surgical History S/P splenectomy S/P foot surgery Family History Brother Alcohol abuse Drug abuse Colorectal cancer Sister Bone cancer Mother Hypertension Grandmother Breast cancer Father Myocardial infarction Denies family history of Ovarian cancer Prostate cancer Social History Smoking Status: Never smoker Second Hand Exposure: No; Do You Dip or Chew Tobacco: No; Hx Alcohol Use: No Hx Substance Use: No Preferred Language: Sudanese Communication Ability: Effective Tipple Mechanic Required: No Beliefs That Will Affect Care: None marital status: Current Living Situation: Alone current occupational status: employed Other Information That Helps Us Care for You: No Feels Safe at Home: Yes Dental Care, Regularly: Yes Physical Activity Frequency: Does not Exercise Seatbelt Use: always Sunscreen Use: No Assistive Devices: None Review of Systems Patient awake alert oriented no respiratory distress Physical Exam Patient in no distress normal respiratory effort PERRLA,alert oriented Results & Data Vital Signs (Past 12 Hours) Vital Signs Temp Pulse Resp BP Pulse Ox O2 Del Method O2 Flow Rate 02/20/24 09:55 36.9 C 02/20/24 07:40 Nasal Cannula 2 02/20/24 07:21 39.1 C H 102 H 16 111/69 94 Nasal Cannula 2.5 Laboratory Results Pathology consult, moderately complexity: | The peripheral blood shows a mild polycythemia with | increased anisopoikilocytosis. Frequent ring forms are seen | inside scattered red cells. There is no significant increase | in schistocytes or spherocytes. There is no evidence of | rouleaux, RBC agglutination, basophilic stippling, or | circulating nucleated red blood cells. The WBC is normal | though there is an absolute monocytosis and lymphopenia. The | granulocytes are appropriately segmented without dysplastic | features. No circulating immature myeloid precursors or | blasts are identified. The monocytes are morphologically | mature. The lymphocytes are small to moderate in size and | mature, without atypical features. The platelets are | quantitatively normal. No dysplastic or giant forms are | identified. | | The peripheral smear is remarkable for a mild polycythemia | and frequent intracellular ring form parasites. In the | absence of a history of travel, this most likely represents | babesia infection. However, the distinction between babesia | and malaria cannot be reliably made in this lab and further | testing is recommended to confirm this diagnosis. Clinical | correlation required. Diagnostic Findings FINDINGS: No lines and tubes are seen. The cardiomediastinal silhouette is normal. The lungs are clear. No evidence of pleural effusion or pneumothorax. A hiatal hernia is seen. IMPRESSION: No acute abnormalities and in particular no radiographic evidence of pneumonia."
--- NOTE | 2024-02-20 16:12 | Hospitalist Progress Note ---
Date of Service February 20, 2024 Assessment & Plan (1) Babesiosis: Plan: Patient presenting from home for evaluation of ongoing fever and call back from the ED after smear from 02/13 visit was positive for Babesia. Patient reports tick bite ~ 3 weeks ago on her chest which she was able to remove the tick, denies any rash. Babesiosis H/O Tick Bite H/O splenectomy Serological test positive for Babesia. Red blood cell inclusions noted on smear Blood cultures negative in 48 hrs Currently on atovaquone, azithromycin ID consulted and discussed with - pt febrile (02/18-02/19) - repeat peripheral smear for parasites, repeat blood cultx Blood pressure usually runs low per patient IV fluids as needed (2) S/P splenectomy: Plan: Hx of splenectomy at age 2 due to trauma (3) GERD (gastroesophageal reflux disease): Plan: Continue PPI (4) H/O hyperlipidemia: Plan: Continue statin DVT Px SQ Lovenox CODE STATUS Full code Admission and Anticipated Discharge Date Admission Date: February 17, 2024 Subjective Patient seen in follow up of babesiosis Feels tired but otherwise well BP still on lower side Febrile last night and this AM Says she has been ambulating without dizziness Denies any chest pain, dyspnea, abdominal pain Discussed with ID - repeat peripheral smear for parasites , repeat blood cultx Review of Systems Review of Systems: All systems reviewed & are unremarkable except as noted in Subjective Physical Exam Physical Exam: General Appearance:Moderately built and nourished, no apparent distress Head: NC/AT Eyes: normal inspection, EOMI Neck: supple Respiratory/Chest: Normal breath sounds, CTA, No accessory muscle use Cardiovascular: S1, S2, No murmur Abdomen/GI: Soft, Non tender, Bowel sounds present Extremities/Musculoskeletal:normal inspection, no edema Neurologic/Psych:AAOX3, grossly no focal neurological deficits Skin: normal color, warm Results & Data Results & Data Vital Signs (Past 12 Hours) Vital Signs Temp Pulse Resp BP Pulse Ox O2 Del Method O2 Flow Rate 02/20/24 13:57 36.6 C 85 16 94/65 L 95 Room Air 02/20/24 09:55 36.9 C 02/20/24 07:40 Nasal Cannula 2 02/20/24 07:21 39.1 C H 102 H 16 111/69 94 Nasal Cannula 2.5 Laboratory Results 02/20/24 02/19/2424 Range/Units 06:25 07:56 07:56 WBC 10.07 (4.8-10.8) K/ul RBC 4.08 L (4.20-5.40) M/uL Hgb 12.0 (12.0-16.0) g/dl Hct 33.7 L (37.0-47.0) % MCV 82.6 (80.0-100.0) fL MCH 29.4 (25.0-34.0) pg MCHC 35.6 (32.0-36.0) g/dL RDW Std Deviation 48.0 H (36.4-46.3) fL RDW Coeff of Saritha 16.1 H (11.5-14.5) % Plt Count 231 (130-400) K/uL MPV 12.6 H (9.4-12.4) fL Sodium 137 (136-145) mmol/L Potassium 4.6 D (3.5-5.1) mmol/L Chloride 108 H (98-107) mmol/L Carbon Dioxide 26 (21-32) mmol/L Anion Gap 3 (3-11) BUN 8 (6-23) mg/dl Creatinine 0.85 (0.6-1.2) mg/dl Est Cr Clr Drug Dosing 60.6 ml/min Est GFR ( Amer) 84.5 ml/min Est GFR (Non-Af Amer) 72.9 ml/min BUN/Creatinine Ratio 9.4 L (10-20) Glucose 93 (70-99(Fasting)) mg/dl Calcium 8.2 L (8.6-10.3) mg/dl Phosphorus 2.2 L (2.5-4.9) mg/dl Magnesium 2.0 Cancelled 2.0 (1.7-2.4) mg/dl Total Bilirubin 0.9 (0.2-1.0) mg/dl AST 40 H (13-39) U/L ALT 30 (7-52) U/L Alkaline Phosphatase 53 (34-104) U/L Total Protein 5.9 L (6.0-8.3) gm/dl Albumin 2.8 L (3.4-5.0) gm/dl Globulin 3.1 (2.5-4.0) gm/dl Albumin/Globulin Ratio 0.9 (0.9-2) Medications Administered Current Inpatient Medications Acetaminophen (Acetaminophen 325 Mg Tab) 650 mg PO Q4H PRN PRN Reason: pain/fever Stop: 03/18/24 14:20 Last Admin: 02/20/24 07:54 Dose: 650 mg Atovaquone (Atovaquone 750 Mg/5 Ml Udc) 750 mg PO Q12H KIRK Stop: 03/18/24 20:59 Last Admin: 02/20/24 07:55 Dose: 750 mg Azithromycin (Azithromycin 250 Mg Tab) 500 mg PO DAILY KIRK Stop: 02/27/24 08:59 Last Admin: 02/20/24 07:54 Dose: 500 mg Enoxaparin Sodium (Enoxaparin Inj 40 Mg/0.4 Ml Syr) 40 mg SQ Q24H KIRK Stop: 03/18/24 14:29 Last Admin: 02/20/24 13:43 Dose: Not Given Promethazine HCl 6.25 mg/ (Sodium Chloride) 50.25 mls @ 201 mls/hr IV Q6H PRN PRN Reason: Nausea And Vomiting Stop: 03/19/24 11:49 Ondansetron HCl (Ondansetron 2 Mg Od Tab) 2 mg PO Q8H PRN PRN Reason: Nausea Stop: 03/20/24 18:21 Last Admin: 02/19/24 20:08 Dose: 2 mg Pantoprazole Sodium (Pantoprazole 40 Mg Tab) 40 mg PO BID KIRK Stop: 03/18/24 20:59 Last Admin: 02/20/24 07:55 Dose: 40 mg Simvastatin (Simvastatin 40 Mg Tab) 40 mg PO HS KIRK Stop: 03/18/24 20:59 Last Admin: 02/19/24 20:10 Dose: Not Given
[2024-02-21 07:42] LABS: Hemoglobin 11.9 g/dl (12.0-16.0); Mean Corpuscular Hgb Conc 36.1 g/dL (32.0-36.0); Mean Corpuscular Volume 80.3 fL (80.0-100.0); Mean Platelet Volume 12.4 fL (9.4-12.4); Platelet Count 288 K/uL (130-400); RDW Coefficient of Variation 16.2 % (11.5-14.5); RDW Standard Deviation 45.7 fL (36.4-46.3); Red Blood Count 4.11 M/uL (4.20-5.40)
[2024-02-21 08:02] VITALS: PULSE 91; RESP 16; TEMP 99
[2024-02-21 08:02] LABS: BUN Creatinine Ratio 10.7 (10-20); Calcium 8.4 mg/dl (8.6-10.3); Creatinine Clr Calc Pharmacy 61.3 ml/min; Est GFR (African American) 85.7 ml/min; Magnesium 1.9 mg/dl (1.7-2.4); Phosphorus 2.8 mg/dl (2.5-4.9)
[2024-02-21 08:22] VITALS: O2SAT 94
--- NOTE | 2024-02-21 12:41 | Discharge Summary ---
Date of Service February 21, 2024 Admission HPI Per Admitting Provider 63-year-old female with PMH HLD, GERD, history of splenectomy at age 2 secondary to trauma, and other problem listed below who presents to the ED for evaluation of fever. Patient reports she had a tick bite on her chest about 3 weeks ago. States she was able to remove the entire tick. Denies any following rash. About 1 week ago, patient reports she started to develop fevers. She also had 3 days of nausea and vomiting. Patient was seen in the ED on 02/13 and was subsequently discharged home. She was called back today after her Babesia test returned positive. Given history of splenectomy and patient continues to run a fever, she was referred back to the ED for further evaluation. Patient reports running a fever this morning of 102 with chills. She has been taking 2 motrin/day without much relief of her symptoms. She reports the nausea and vomiting resolved. No chest pain or shortness of breath. Denies lightheadedness, dizziness, diaphoresis, and syncopal events. Denies urinary symptoms. In the ED, patient is afebrile, labs essentially unremarkable. Patient was given azithromycin, atovaquone, and IVF. Admission Exam Per Admitting Provider Constitutional: WD/WN, vitals as above no acute distress Eyes: PERRL, conjunctivae normal, anicteric sclerae ENMT: external ear and nose normal, oropharynx normal Respiratory: normal respiratory effort, lungs clear to auscultation Cardiovascular: Rate/Rhythm: regular rate and regular rhythm Vessels: normal peripheral pulses Extremities: no edema Gastrointestinal (Abdomen): normal bowel sounds, soft, nontender, no hepatosplenomegaly Musculoskeletal: no cyanosis or clubbing, extremities motor strength 5/5 Skin: no rashes, warm and dry Neurologic: PERRL, EOMI, accommodation nl, no face palsy, no dysarthria Psychiatric: A+Ox3, euthymic affect Principal Diagnosis Babesiosis Discharge Exam General Appearance:Moderately built and nourished, no apparent distress Head: NC/AT Eyes: normal inspection, EOMI Neck: supple Respiratory/Chest: Normal breath sounds, CTA, No accessory muscle use Cardiovascular: S1, S2, No murmur Abdomen/GI: Soft, Non tender, Bowel sounds present Extremities/Musculoskeletal:normal inspection, no edema Neurologic/Psych:AAOX3, grossly no focal neurological deficits Skin: normal color, warm Discharge Data Allergies Allergy/AdvReac Type Severity Reaction Status Date / Time No Known Drug Allergies Allergy Unknown . Verified 02/17/24 13:17 Consultations 02/17/24 13:09 ED Decision to Admit Stat 02/17/24 14:21 Consult Infectious Diseases Routine Hospital Course (1) Babesiosis: Patient presenting from home for evaluation of ongoing fever and call back from the ED after smear from 02/13 visit was positive for Babesia. Patient reports tick bite ~ 3 weeks ago on her chest which she was able to remove the tick, denies any rash. Babesiosis H/O Tick Bite H/O splenectomy Serological test positive for Babesia. Red blood cell inclusions noted on smear Blood cultures negative in 48 hrs Currently on atovaquone, azithromycin ID consulted and discussed with - pt febrile (02/18-02/19) - repeat peripheral smear for parasites, repeat blood cultx Blood pressure usually runs low per patient IV fluids as needed 02/21/2024 - Pt is feeling well, not requiring any IVF, not febrile and very much wants to go home. Discussed with ID - will discharge on atovaquone and azithromycin, but given anaplasma and ehrlichia are still pending, will also discharge on doxycycline. She will follow up with PCP and at that time results w ill be available and medications can be further adjusted. PCP can further discuss with ID as needed as well. 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2 due to trauma (3) GERD (gastroesophageal reflux disease): Continue PPI (4) H/O hyperlipidemia: Continue statin Total Time Total Time Spent Total Time Spent (In Minutes): 40 Discharge Plan Discharge Items Patient Disposition: Home - Self-Care Reason For Visit: BABESIA Discharge Diagnosis: Babesiosis Activity: Per Instructions section Non-emergency contact: Primary Care Provider and Specialist Call non-emergency contact if: you have any medication questions and your symptoms worsen Follow-up/Referrals: Ayala Price MD [Primary Care Provider] - 02/27/24 9:40 am (Date & Time 02/27/2024 9:40 AM Provider Rafita Frederick MD Department Family Medicine [facility] ) Diet: Regular Addtl Attending Provider Instructions: Follow up with your primary care doctor within 1 week. At that time results of your blood work will be available for review and your medications may need further adjusted. For now, take azithromycin, atovaquone and doxycycline as prescribed. Make sure to stay well hydrated. Pending Studies at Discharge: Yes Studies:: blood cultx, blood smear results Stand-Alone Forms: My [facility], Smoking Cessation Medications and DC Order Prescriptions: New atovaquone [Mepron] 750 mg/5 mL Suspension 750 mg PO Q12H 5 Days Qty: 50 0RF doxycycline hyclate 100 mg tablet 100 mg PO BID 10 Days Qty: 20 0RF azithromycin 500 mg tablet 500 mg PO DAILY Qty: 5 0RF ondansetron 4 mg Tablet,Disintegrating 2 mg PO Q8H PRN (Reason: nausea and vomiting) Qty: 5 0RF Continued omeprazole 20 mg tablet,delayed release (DR/EC) 20 mg PO BID Qty: 30 5RF simvastatin 40 mg tablet 40 mg PO HS Discharge Orders: Discharge Order (Routine); Ordered 02/21/24 Ordered By: Floyd Izaguirre Admission Data Admit Date/Time: 02/17/24 13:11 Attending Provider: Floyd Izaguirre Admit Provider: En Hilliard Primary Care Provider: Ayala Priec Other Providers: En Hilliard; Kt Waters; Brenna Gallegos; Eyal Amin I.; J Carlos Ulloa II; Marilee Patel; Imtiaz Hernandez; Raza Stevens; Gege Greene; Levy Gaspar Other Interventions: Discharge Summary Assessment (RN) Last Done: 02/21/24 12:51
[2024-02-21 12:51] VITALS: BP 85/53
[2024-02-21 15:54] LABS: Ehrlichia chaff DNA Bld Negative (Negative)
[2024-02-22] MEDS ORDERED: ATOVAQUONE 750 MG/5 ML UDC PO SCH (09:00)
== END 2024-02-21 14:44 | disposition home or self-care (01) | DRG 869 ==
LOC: ED 11:32 → SUATTDRO 13:11 → EDINP 13:11 → 3N 14:20 → 3W 02-18 14:03
DX: R11.2 Nausea with vomiting, unspecified; Y92.821 Forest as the place of occurrence of the external cause; Z90.81 Acquired absence of spleen; B60.00 Babesiosis, unspecified; K21.9 Gastro-esophageal reflux disease without esophagitis; E78.5 Hyperlipidemia, unspecified; W57.XXXA Bitten or stung by nonvenomous insect and other nonvenomous arthropods, initial encounter